=== PATIENT | male | born 1960 | race Caucasian/White ===

== ENCOUNTER 2024-07-10 08:30 | Day surgery (SDC) | payer OTHER ==
[2024-07-10 08:44] VITALS: RESP 18
[2024-07-10] MEDS ORDERED: DIPRIVAN 200 MG/20 ML IV ONE ×2 (10:54→10:59)
--- NOTE | 2024-07-10 10:57 | HP ---
HISTORY OF PRESENT ILLNESS: The patient has a history of anemia. No prior endoscopy per patient. No bloody stools. No change in bowel habits. No new pain. Family history negative for colon cancer. PAST MEDICAL HISTORY: Hyperlipidemia. HOME MEDICATIONS: Vitamin D3, pravastatin, atorvastatin. ALLERGIES: No known drug allergies. PAST SURGICAL HISTORY: No prior surgeries. SOCIAL HISTORY: No smoking or alcohol abuse. FAMILY HISTORY: Diabetes, heart disease. Negative for colon cancer. REVIEW OF SYSTEMS: Twelve systems reviewed. No chest pain or palpitations. Other systems negative or noncontributory as above and per preadmission questionnaire. PHYSICAL EXAMINATION: GENERAL: Height 5 feet 8 inches. BMI 34.21. No acute distress. HEENT: Sclerae nonicteric. NECK: No JVD. CHEST: Equal excursion, nonlabored breathing. CARDIOVASCULAR: Regular rate and rhythm. ABDOMEN: Soft. SKIN: Dry. EXTREMITIES: No cyanosis or edema. NEUROLOGIC: Alert and oriented. Moving extremities symmetrically. PSYCHIATRIC: Appropriate mood and affect. RECTAL: Deferred until time of endoscopy exam. IMPRESSION: Anemia. Needs EGD and colonoscopy for evaluation. Risks explained in detail including bleeding, infection, risk of bowel injury or perforation possibly requiring open procedure, risk of misdiagnosis or incomplete exam possibility requiring barium enema or other studies or procedures, general risk of anesthesia or sedation, risk of bowel prep. Will proceed with outpatient EGD and colonoscopy under MAC anesthesia as an outpatient to evaluate cause of anemia. Otherwise, continued medication for hyperlipidemia.
[2024-07-10 12:10] VITALS: BP 150/77; PULSE 71; TEMP 98.7; O2SAT 92
--- NOTE | 2024-07-11 12:29 | OP ---
SURGERY DATE/TIME: 07/10/2024 [id number] PREOPERATIVE DIAGNOSIS: Anemia. POSTOPERATIVE DIAGNOSES: 1) Gastritis, short segment distal esophageal inflammation, biopsy pending. 2) Question submucosa lipoma transverse colon. 3) Diverticulosis. 4) Fair but limited prep. 5) Very tiny trace hiatal hernia. PROCEDURE: 1) Esophagogastroduodenoscopy; cold biopsy of antrum for H pylori; cold biopsy distal esophagus to evaluate for short segment distal esophagitis. 2) Colonoscopy of the cecum; hot biopsy of the normal-appearing mucosa; overlying question of submucosal lipoma. SURGEON: Kvng Gee MD. ANESTHESIA: MAC. ESTIMATED BLOOD LOSS: Minimal. INDICATIONS: As above. Consent obtained. DESCRIPTION OF PROCEDURE AND FINDINGS: The patient was taken to the endoscopy room. MAC anesthesia was induced after official time-out and no disagreement with planned procedure. Bite block positioned. Videogastroscope easily passed down the esophagus through the patent pylorus to the junction of the third and fourth portions of the duodenum. The duodenum was grossly unremarkable. No signs of any obvious large polyps, mass or obstructing lesions in ileocecal valve and appendiceal orifice. The scope was then passed through the junction of the third and fourth portions of the duodenum. On withdrawal of the scope, no signs of any ulcers. There was a little bit of gastritis in the stomach. Cold biopsy taken to evaluate for H pylori. There were no signs of any ulcers. Good hemostasis noted. On retroflex, there is maybe a very tiny hiatal weakness. No signs of any large hiatal hernia. Scope was straightened. Short segment. A little bit of inflammation distal esophagus. No signs of Freeman's. No signs of any obvious masses or ulcers. Good hemostasis was noted. GE junction was about 36 cm. Scope was withdrawn. The patient's ASA class was 2. Prep overall was fair, and on the limited side. A little bit of liquidy semi-solid stool throughout the colon, this did limit the exam for small lesions. There were no signs of any large polyps, masses, or obstructing lesions. The patient did have some diverticulosis mostly in the small diverticula in the left colon. There was small 0.5 cm submucosal smooth density, question lipoma. The mucosa overlying was normal-appearing. Cold biopsies taken of this. Otherwise, scope pulled back and cold biopsy was taken. Good hemostasis was noted. Otherwise, scope was carefully pulled back. No signs of any large polyps, masses, or obstructing lesions. He did have some diverticulosis in the left colon and had some minimal internal hemorrhoids. The scope was withdrawn. The patient tolerated the procedure well. The withdrawal time on the colon was about 10 minutes. Went to look for family after the procedure.
== END 2024-07-10 12:15 | disposition home or self-care (01) ==
LOC: SDC 08:30 → EDSEX 08:30 → SDC 12:15
PROVIDERS: ATTEND Surgery
DX: K29.70 Gastritis, unspecified, without bleeding (principal); D64.9 Anemia, unspecified; K63.5 Polyp of colon; K57.30 Diverticulosis of large intestine without perforation or abscess without bleeding; K44.9 Diaphragmatic hernia without obstruction or gangrene
CPT/HCPCS: J2704

== ENCOUNTER 2025-06-15 10:02 | Emergency (ER) | payer OTHER ==
--- NOTE | 2025-06-15 10:12 | ERPHSYRPT ---
- History of Present Illness Time Seen by Provider: 06/15/25 10:12 Historian: patient, family, old records Exam Limitations: no limitations Physician History: This is a morbidly obese 65-year-old white male patient who arrives to the emergency department by private vehicle accompanied by his spouse with the complaint of bilateral lower quadrant abdominal pain/pressure that began 2 days ago. Patient has had associated small passages of liquid stool. Patient had a colonoscopy within the last year. Patient underwent an appendectomy at this hospital in January 2025 and I reviewed that admission summary. At that time he was also found to have evidence of sigmoid colitis. Patient has a history of hyperlipidemia, anemia, hypothyroidism. Patient denies chest pain and he denies shortness of breath. Patient states his last oral intake was coffee at 9 AM Timing/Duration: day(s) (2) Activities at Onset: none Quality: pressure Abdominal Pain Onset Location: RLQ, LLQ Pain Radiation: no radiation Severity of Pain-Max: moderate Associated Symptoms: diarrhea Previous symptoms: same symptoms as today, no recent treatment Allergies/Adverse Reactions: No Known Drug Allergies Allergy (Verified 06/15/25 10:16) Home Medications: Atorvastatin Calcium 20 mg PO UD 06/28/24 [History] Pravastatin Sodium 20 mg PO UD 06/28/24 [History] Cholecalciferol (Vitamin D3) [Vitamin D] 2,000 unit PO DAILY 06/15/25 [History] Levothyroxine Sodium [Synthroid] 1 ea DAILY 06/15/25 [History] Hx Tetanus, Diphtheria Vaccination/Date Given: No Hx Influenza Vaccination/Date Given: No Hx Pneumococcal Vaccination/Date Given: No Travel Risk - International Travel Have you traveled outside of the country in past 3 weeks: No - Emerging Infectious Disease Are you exhibiting symptoms associated with any current EIDs: Yes Symptoms: Abdominal Pain - Review of Systems Constitutional: No Symptoms Eyes: No Symptoms Ears, Nose, & Throat: No Symptoms Respiratory: No Symptoms Cardiac: No Symptoms Abdominal/Gastrointestinal: Abdominal Pain, Diarrhea Genitourinary Symptoms: No Symptoms Musculoskeletal: No Symptoms Skin: No Symptoms Neurological: No Symptoms Psychological: No Symptoms Endocrine: No Symptoms Hematologic/Lymphatic: No Symptoms Immunological/Allergic: No Symptoms All Other Systems: Reviewed and Negative - Past Medical History Pertinent Past Medical History: No Neurological History: No Pertinent History ENT History: No Pertinent History Cardiac History: High Cholesterol Respiratory History: No Pertinent History Endocrine Medical History: No Pertinent History Musculoskeletal History: No Pertinent History GI Medical History: No Pertinent History History: No Pertinent History Psycho-Social History: No Pertinent History Other Medical History: anemia - Past Surgical History Past Surgical History: No Neuro Surgical History: No Pertinent History Cardiac: No Pertinent History Respiratory: No Pertinent History Gastrointestinal: No Pertinent History Genitourinary: No Pertinent History Musculoskeletal: No Pertinent History Male Surgical History: No Pertinent History Significant Family History: no pertinent family hx (No family history pertaining to this admission reported) - Social History Smoking Status: Former smoker Exposure to second hand smoke: No Drug Use: none - Social Determinants of Health Will the patient participate in the screening: Yes Do you worry about a steady place to live?: No In the past 12 months,have you had to go without utilities?: No Transportation Issues: No Has anyone in your support network made you feel unsafe?: No Have you or anyone in your house had to go w/o enough food: No - Nursing Vital Signs Nursing Vital Signs: Initial Vital Signs Temperature 99.6 F 06/15/25 10:02 Pulse Rate 93 H 06/15/25 10:02 Respiratory Rate 18 06/15/25 10:02 Blood Pressure 154/92 06/15/25 10:02 O2 Sat by Pulse Oximetry 97 06/15/25 10:02 Pain Scale Pain Intensity 10 - Physical Exam General Appearance: no apparent distress, alert, anxiety, obese Eye Exam: PERRL/EOMI, eyes nml inspection Ears, Nose, Throat Exam: normal ENT inspection, moist mucous membranes Neck Exam: normal inspection, non-tender, supple, carotid bruit Respiratory Exam: normal breath sounds, lungs clear, airway intact, No chest tenderness, No respiratory distress Cardiovascular Exam: regular rate/rhythm, normal heart sounds, normal peripheral pulses Gastrointestinal/Abdomen Exam: soft, normal bowel sounds, tenderness (Bilateral lower quadrants to palpation), guarding (Bilateral lower quadrant to palpation), No rebound Rectal Exam: not done Back Exam: normal inspection, normal range of motion, No CVA tenderness, No vertebral tenderness Extremity Exam: normal inspection, normal range of motion, pelvis stable Neurologic Exam: alert, oriented x 3, cooperative, hydraulic engineer II-XII nml as tested, nml cerebellar function, nml station & gait, sensation nml Skin Exam: normal color, warm, dry Lymphatic Exam: No adenopathy SpO2 Interpretation: normal O2 Delivery: Room Air Ordered Tests: Active Orders 24 hr Category Date Time Status IV Insertion STAT Care 06/15/25 10:34 Active ABDOMEN AND PELVIS W/0 CONTRAS [CT] Stat Exams 06/15/25 10:35 Completed AMYLASE Stat Lab 06/15/25 10:30 Completed CBC W DIFF Stat Lab 06/15/25 10:40 Completed CMP Stat Lab 06/15/25 10:30 Completed CULTURE,URINE Stat Lab 06/15/25 10:37 Received LIPASE Stat Lab 06/15/25 10:30 Completed Lactic Acid Stat Lab 06/15/25 10:34 Completed UA W/RFX UR CULTURE Stat Lab 06/15/25 10:37 Completed Medication Summary Discontinued Medications Generic Name Dose Route Start Last Admin Trade Name Freq PRN Reason Stop Dose Admin Hydromorphone HCl 1 mg 06/15/25 10:34 06/15/25 10:42 Hydromorphone 1 Mg/1ml Inj IV 06/15/25 10:35 1 mg STAT ONE Administration Hydromorphone HCl Confirm 06/15/25 10:40 Hydromorphone 1 Mg/1ml Inj Administered 06/15/25 10:41 Dose 1 mg .ROUTE .STK-MED ONE Sodium Chloride 1,000 mls @ 999 mls/hr 06/15/25 10:34 06/15/25 10:42 Sodium Chloride 0.9% 1000 Ml IV 06/15/25 11:34 999 mls/hr .Q1H1M STA Administration Sodium Chloride Confirm 06/15/25 10:40 Sodium Chloride 0.9% 1000 Ml Administered 06/15/25 10:41 Dose 1,000 mls @ ud .ROUTE .STK-MED ONE Ondansetron HCl 4 mg 06/15/25 10:34 06/15/25 10:43 Ondansetron Hcl 4 Mg/2 Ml Vial IV 06/15/25 10:35 4 mg STAT ONE Administration Ondansetron HCl Confirm 06/15/25 10:39 Ondansetron Hcl 4 Mg/2 Ml Vial Administered 06/15/25 10:40 Dose 4 mg .ROUTE .STK-MED ONE Lab/Rad Data: Laboratory Result Diagrams 06/15/25 10:40 10/31/25 10:30 Laboratory Results 06/15/25 06/15/25 06/15/25 Range/Units 10:40 10:37 10:34 WBC 18.0 H (4.23-9.07) x10^3/uL RBC 3.43 L (4.63-6.08) x10^6/uL Hgb 12.1 L (13.7-17.5) g/dL Hct 35.3 L (40.1-51.0) % MCV 102.9 H (79.0-92.2) fL MCH 35.3 H (25.7-32.2) pg MCHC 34.3 (32.3-36.5) g/dL RDW 15.6 H (11.6-14.4) % Plt Count 286 (163-337) x10^3/uL MPV 9.7 (9.4-12.4) fL Gran % 83.2 H (34.0-67.9) % Immature Gran % (Auto) 0.5 H (0.001-0.429) % Nucleat RBC Rel Count 0.0 (0.00-0.2) % Eos # (Auto) 0.01 L (0.04-0.54) x10^3/uL Immature Gran # (Auto) 0.09 H (0.001-0.031) x10^3u/L Absolute Lymphs (auto) 1.85 (1.32-3.57) x10^3/uL Absolute Monos (auto) 1.03 H (0.30-0.82) x10^3/uL Absolute Nucleated RBC 0.00 (0.00-0.012) x10^3u/L Lymphocytes % 10.3 L (21.8-53.1) % Monocytes % 5.7 (5.3-12.2) % Eosinophils % 0.1 L (0.8-7.0) % Basophils % 0.2 (0.2-1.2) % Absolute Granulocytes 14.94 H (1.78-5.38) x10^3/uL Basophils # 0.04 (0.01-0.08) x10^3/uL Sodium (135-145) mmol/L Potassium (3.5-5.1) mmol/L Chloride (98-107) mmol/L Carbon Dioxide (22-30) mmol/L Anion Gap (5-15) MEQ/L BUN (9-20) mg/dL Creatinine (0.66-1.25) mg/dL Estimated GFR ML/MIN Glucose (74-106) mg/dL Lactic Acid 1.5 (0.4-2.0) Calcium (8.4-10.2) mg/dL Total Bilirubin (0.2-1.3) mg/dL AST (17-59) U/L ALT (0-50) U/L Alkaline Phosphatase (38-126) U/L Serum Total Protein (6.3-8.2) g/dL Albumin (3.5-5.0) g/dL Amylase (30-110) U/L Lipase (23-300) U/L Urine Color Dark Yellow (Yellow) Urine Appearance Clear (Clear) Urine pH 5.5 (4.6-8.0) Ur Specific [place] 1.025 (1.005-1.030) Urine Protein 30 (Negative) Urine Glucose (UA) Negative (Negative) mg/dL Urine Ketones 15 A (Negative) Urine Blood Large A (Negative) Urine Nitrite Negative (Negative) Urine Bilirubin Negative (Negative) Urine Urobilinogen 1.0 A (0.2) mg/dL Ur Leukocyte Esterase Negative (Negative) U Hyaline Cast (Auto) NONE SEEN (0-2) /LPF Urine Microscopic RBC 21-50 A (0-5) /HPF Urine Microscopic WBC 0-2 (0-5) /HPF Ur Epithelial Cells None Seen (None Seen) /HPF Urine Bacteria None Seen (None Seen) /HPF Urine Culture Reflexed YES (NO) 06/15/25 Range/Units 10:30 WBC (4.23-9.07) x10^3/uL RBC (4.63-6.08) x10^6/uL Hgb (13.7-17.5) g/dL Hct (40.1-51.0) % MCV (79.0-92.2) fL MCH (25.7-32.2) pg MCHC (32.3-36.5) g/dL RDW (11.6-14.4) % Plt Count (163-337) x10^3/uL MPV (9.4-12.4) fL Gran % (34.0-67.9) % Immature Gran % (Auto) (0.001-0.429) % Nucleat RBC Rel Count (0.00-0.2) % Eos # (Auto) (0.04-0.54) x10^3/uL Immature Gran # (Auto) (0.001-0.031) x10^3u/L Absolute Lymphs (auto) (1.32-3.57) x10^3/uL Absolute Monos (auto) (0.30-0.82) x10^3/uL Absolute Nucleated RBC (0.00-0.012) x10^3u/L Lymphocytes % (21.8-53.1) % Monocytes % (5.3-12.2) % Eosinophils % (0.8-7.0) % Basophils % (0.2-1.2) % Absolute Granulocytes (1.78-5.38) x10^3/uL Basophils # (0.01-0.08) x10^3/uL Sodium 136 (135-145) mmol/L Potassium 3.9 (3.5-5.1) mmol/L Chloride 105 (98-107) mmol/L Carbon Dioxide 21 L (22-30) mmol/L Anion Gap 13.4 (5-15) MEQ/L BUN 14 (9-20) mg/dL Creatinine 1.20 (0.66-1.25) mg/dL Estimated GFR 66.7 ML/MIN Glucose 134 H (74-106) mg/dL Lactic Acid (0.4-2.0) Calcium 8.7 (8.4-10.2) mg/dL Total Bilirubin 1.30 (0.2-1.3) mg/dL AST 21 (17-59) U/L ALT 23 (0-50) U/L Alkaline Phosphatase 64 (38-126) U/L Serum Total Protein 7.7 (6.3-8.2) g/dL Albumin 4.5 (3.5-5.0) g/dL Amylase 73 (30-110) U/L Lipase 57 (23-300) U/L Urine Color (Yellow) Urine Appearance (Clear) Urine pH (4.6-8.0) Ur Specific Crouse (1.005-1.030) Urine Protein (Negative) Urine Glucose (UA) (Negative) mg/dL Urine Ketones (Negative) Urine Blood (Negative) Urine Nitrite (Negative) Urine Bilirubin (Negative) Urine Urobilinogen (0.2) mg/dL Ur Leukocyte Esterase (Negative) U Hyaline Cast (Auto) (0-2) /LPF Urine Microscopic RBC (0-5) /HPF Urine Microscopic WBC (0-5) /HPF Ur Epithelial Cells (None Seen) /HPF Urine Bacteria (None Seen) /HPF Urine Culture Reflexed (NO) - Progress Progress: improved, re-examined Progress Note: 06/15/25 10:45 My medical decision making and the assignment of moderate to high complexity of this patient's medical issue is based on review of the patient's past medical history, review of patient last admission note in January 2025, review of the patient's medication list, reviewed patient drug allergy list, history of present illness and physical findings on examination. The workup in this patient includes placement of a intravenous line infusion of normal saline solution, infusion of Zofran, infusion of Dilaudid, CBC, CMP, amylase, lipase, urinalysis, CT scan of the abdomen pelvis without contrast Differential diagnosis includes but is not limited to colitis, diverticulitis, bowel obstruction, pancreatitis, urinary tract infection 06/15/25 12:01 I interpreted the patient's laboratory data results. Based on the laboratory data results, there is evidence of leukocytosis and dehydration. White count is 18,000. Lactic acid is normal. CO2 level is 21. Anion gap is normal. Urinalysis is consistent with mild dehydration with the presence of ketonuria. CT scan of the abdomen pelvis without contrast was interpreted by the radiologist and I reviewed the impression. The impression states sigmoid diverticulitis/colitis with mesenteric stranding. Colonic mass is not completely excluded. There is no evidence of free air or free fluid. Note: Patient had a nonacute colonoscopy 10 months ago per patient. Counseled pt/family regarding: lab results, diagnosis, need for follow-up, rad results Medical Desision Making - Independent Historian Additional History obtained from: Spouse - Diagnostic Testing Diagnostic test were ordered, analyzed, and reviewed by me: Yes Radiological Interpretation: Reviewed by me, Teleradiologist Report - Risk of complications Low Risk: Low risk of morbidity from additional dx testing or treatment The pt has a mod risk of morbidity or mortality based on: Need for prescription drug management - Departure Departure Disposition: Home Clinical Impression: Sigmoid diverticulitis, Leukocytosis, Dehydration Condition: Stable Critical Care Time: No Referrals: HOSPITAL,'[facility] [Primary Care Provider, UNKNOWN] - Follow up/PCP as directed Additional Instructions: Drink plenty of clear liquids. Do not advance your diet until you have no abdominal pain. Take your antibiotics and pain medicine as prescribed. Return to the emergency department if symptoms worsen. Call your primary care provider today, 06/15/2025, to make arrangements for follow-up appointment to be seen in the next 3 to 5 days. Prescriptions: Hydrocodone/APAP 5/325 [[place] 5/325 mg] 1 each PO Q12H PRN PRN #6 tablet MDD 2 PRN Reason: Pain Ciprofloxacin [Cipro 500 MG] 500 mg PO BID #14 tablet Metronidazole 500 mg [Flagyl 500 MG] 500 mg PO TID #21 tablet
[2025-06-15 10:32] VITALS: RESP 18
[2025-06-15 10:35] VITALS: PULSE 94
[2025-06-15] MEDS ORDERED: Zofran 4 MG/2 ML VIAL ONE (10:39)
[2025-06-15] MEDS ORDERED: Hydromorphone 1 mg/ml Injection ONE (10:40)
[2025-06-15] MEDS: Hydromorphone 1 mg/ml Injection IV ONE ×2 (10:42→13:49)
[2025-06-15] MEDS: Zofran 4 MG/2 ML VIAL IV ONE (10:43)
[2025-06-15 10:49] LABS: BASOPHIL % 0.2 % (0.2-1.2); Basophil (Absolute #) 0.04 x10^3/uL (0.01-0.08); Eosinophil (Absolute #) 0.01 x10^3/uL (0.04-0.54); Hematocrit 35.3 % (40.1-51.0); Hemoglobin 12.1 g/dL (13.7-17.5); IMMATURE GRAN # 0.09 x10^3u/L (0.001-0.031); IMMATURE GRAN % 0.5 % (0.001-0.429); Lymphocyte (Absolute #) 1.85 x10^3/uL (1.32-3.57); Mean Corpuscular Hemoglobin 35.3 pg (25.7-32.2); Mean Corpuscular Hgb Concent. 34.3 g/dL (32.3-36.5); Monocyte (Absolute #) 1.03 x10^3/uL (0.30-0.82); NUCLEATED RBC # 0.00 x10^3u/L (0.00-0.012); NUCLEATED RBC % 0.0 % (0.00-0.2); Platelet Count 286 x10^3/uL (163-337); Red Blood Count 3.43 x10^6/uL (4.63-6.08); White Blood Count 18.0 x10^3/uL (4.23-9.07)
[2025-06-15 10:54] LABS: Glucose, Urine Negative (Negative); Protein,Urine Dip 30 (Negative); RBC 21-50 /HPF (0-5); WBC 0-2 /HPF (0-5)
[2025-06-15 11:12] LABS: Calcium 8.7 mg/dL (8.4-10.2); Carbon Dioxide 21.0 mmol/L (22-30); Creatinine 1 1.2 mg/dL (0.66-1.25); EST GLOMERULAR FILTRATION RATE 66.7 ML/MIN; Glucose 134.0 mg/dL (74-106); Potassium 3.9 mmol/L (3.5-5.1); SGOT/AST 21.0 U/L (17-59); SGPT/ALT 23.0 U/L (0-50); Total Protein 7.7 g/dL (6.3-8.2)
--- NOTE | 2025-06-15 11:51 | XRAY ---
Indication: Bilateral lower quadrant abdominal pain. Diarrhea. Multiple contiguous axial images obtained through the abdomen and pelvis without contrast. Comparison: March 16, 2025 Lung bases again demonstrates minimal dependent atelectasis and tiny right base calcified granuloma. No infiltrate or effusion. Heart not enlarged. Stable small hiatal hernia. Noncontrasted stomach and bowel loops nonobstructed. Again mild scattered colonic diverticulosis. Sigmoid again demonstrates segment of abnormal circumferential wall thickening with mesenteric stranding, more than before. This is at least 10 cm in length. Findings may represent diverticulitis/colitis. Underlying colonic mass not completely excluded on this noncontrast exam. Again appendectomy. No free fluid/air. Stable 3.3 cm left renal exophytic cyst. Remaining liver, gallbladder, pancreas, spleen, adrenal glands, kidneys, ureters, and bladder are unremarkable for noncontrast exam. There remains mild scattered aortoiliac calcifications. Osseous structures intact again with osteopenia and minimal degenerative changes throughout spine. Impression: 1. Worsening sigmoid bowel wall thickening and mesenteric stranding, possibly diverticulitis/colitis as previously reported. Colonic mass not completely excluded. 2. Again chronic findings including hiatal hernia, colonic diverticulosis, left renal cyst, arteriosclerotic disease, chronic bony findings, and old granulomatous disease.
[2025-06-15] MEDS ORDERED: Flagyl 500 MG ONE (12:11)
[2025-06-15] MEDS ORDERED: PIPERACILLIN/TAZOBACTAM IV ONE (12:11)
[2025-06-15] MEDS: Flagyl 500 MG PO ONE (12:15)
[2025-06-15 13:29] VITALS: BP 129/71; O2SAT 96
[2025-06-15 13:33] VITALS: TEMP 98.6
== END 2025-06-15 14:01 | disposition home or self-care (01) ==
LOC: ED 10:02
DX: K57.32 Diverticulitis of large intestine without perforation or abscess without bleeding (principal); D72.829 Elevated white blood cell count, unspecified; E86.0 Dehydration; R10.31 Right lower quadrant pain; R10.32 Left lower quadrant pain; Z79.891 Long term (current) use of opiate analgesic; Z79.899 Other long term (current) drug therapy

== ENCOUNTER 2025-06-17 06:22 | Emergency (ER) | payer OTHER ==
--- NOTE | 2025-06-17 06:41 | ERPHSYRPT ---
- History of Present Illness Time Seen by Provider: 06/17/25 06:35 Historian: patient, family Exam Limitations: no limitations Patient Subjective Stated Complaint: pt states that he was diagnosed with diverticulitis on wednesday. pt states that the pain began this morning. pt states that he was fine before bed. Triage Nursing Assessment: pt came into the er via wheelchair; pt transfer to cot per self; pt is restless and agitated; c/o abd pain; pt states 10/10 pain to lower abd; abd round, large, distended, tender; hypoactive bowel sounds in all quads; last BM was small this morning; pt denies N/V; skin pale, diaphoretic, warm; no respiratory distress present; hypertensive Physician History: This is a 65-year-old white male patient who presents to the emergency department by private vehicle accompanied by his spouse and is a patient of the [facility] system with severe lower pain. Patient was diagnosed with sigmoid diverticulitis on 06/15/2025. He was diagnosed based on CT scan which showed sigmoid diverticulitis/colitis with mesenteric stranding. He did have a white count of 18,000 on that visit with normal lactic acid level and normal anion gap. Colonic mass could not be entirely excluded. There is no evidence of abscess. There is no evidence of free air or free fluid. Of note: Patient had an nonacute/normal colonoscopy 10 months ago per his report. Patient was sent home with prescription for Cipro, Flagyl and [place]. He was feeling much improved. He felt good going to bed last evening. However this morning he woke up with sudden onset of the pain description as above. Patient denies chest pain and he denies shortness of breath. Patient has a history of hyperlipidemia and hypothyroid. Patient's vital signs are stable at this time and is afebrile. Timing/Duration: today, worse Quality: sharpness, stabbing Abdominal Pain Onset Location: RLQ, LLQ Pain Radiation: groin Severity of Pain-Max: moderate Severity of Pain-Current: moderate Modifying Factors: Improves With: nothing Associated Symptoms: loss of appetite, nausea, No chest pain, No shortness of breath, No vomiting Previous symptoms: same symptoms as today, recently seen, recently treated Allergies/Adverse Reactions: No Known Drug Allergies Allergy (Verified 06/17/25 06:29) Home Medications: Atorvastatin Calcium 20 mg PO UD 06/28/24 [History] Pravastatin Sodium 20 mg PO UD 06/28/24 [History] Cholecalciferol (Vitamin D3) [Vitamin D] 2,000 unit PO DAILY 06/15/25 [History] Levothyroxine Sodium [Synthroid] 1 ea DAILY 06/15/25 [History] Hx Tetanus, Diphtheria Vaccination/Date Given: No (unknown) Hx Influenza Vaccination/Date Given: No Hx Pneumococcal Vaccination/Date Given: No Travel Risk - International Travel Have you traveled outside of the country in past 3 weeks: No - Emerging Infectious Disease Are you exhibiting symptoms associated with any current EIDs: Yes Symptoms: Abdominal Pain - Review of Systems Constitutional: No Symptoms Eyes: No Symptoms Ears, Nose, & Throat: No Symptoms Respiratory: No Symptoms Cardiac: No Symptoms Abdominal/Gastrointestinal: Abdominal Pain (Bilateral lower quadrant abdominal pain) Genitourinary Symptoms: No Symptoms Musculoskeletal: No Symptoms Skin: No Symptoms Neurological: No Symptoms Psychological: No Symptoms Endocrine: No Symptoms Hematologic/Lymphatic: No Symptoms Immunological/Allergic: No Symptoms All Other Systems: Reviewed and Negative - Past Medical History Pertinent Past Medical History: No Neurological History: No Pertinent History ENT History: No Pertinent History Cardiac History: High Cholesterol Respiratory History: No Pertinent History Endocrine Medical History: No Pertinent History Musculoskeletal History: No Pertinent History GI Medical History: No Pertinent History History: No Pertinent History Psycho-Social History: No Pertinent History Other Medical History: anemia - Past Surgical History Past Surgical History: No Neuro Surgical History: No Pertinent History Cardiac: No Pertinent History Respiratory: No Pertinent History Gastrointestinal: No Pertinent History Genitourinary: No Pertinent History Musculoskeletal: No Pertinent History Male Surgical History: No Pertinent History Significant Family History: no pertinent family hx (No family history pertaining to this admission reported) - Social History Smoking Status: Former smoker Exposure to second hand smoke: No Drug Use: none - Social Determinants of Health Will the patient participate in the screening: Yes Do you worry about a steady place to live?: No Do you have any problems with any of the following?: No known problems In the past 12 months,have you had to go without utilities?: No Transportation Issues: No Has anyone in your support network made you feel unsafe?: No Have you or anyone in your house had to go w/o enough food: No - Nursing Vital Signs Nursing Vital Signs: Initial Vital Signs Temperature 96.6 F 11/02/25 06:29 Pulse Rate 83 06/17/25 06:29 Respiratory Rate 22 06/17/25 06:29 Blood Pressure 167/79 06/17/25 06:29 O2 Sat by Pulse Oximetry 97 06/17/25 06:29 Pain Scale Pain Intensity 4 - Physical Exam General Appearance: mild distress, alert, anxiety, obese Eye Exam: PERRL/EOMI, eyes nml inspection Ears, Nose, Throat Exam: normal ENT inspection, moist mucous membranes Neck Exam: normal inspection, non-tender, supple, full range of motion Respiratory Exam: normal breath sounds, lungs clear, airway intact, No chest tenderness, No respiratory distress Cardiovascular Exam: regular rate/rhythm, normal heart sounds, normal peripheral pulses Gastrointestinal/Abdomen Exam: soft, normal bowel sounds, tenderness (Bilateral lower quadrants to palpation), guarding (Bilateral), rebound ( lower quadrant to palpation bilateral lower quadrants to palpation) Male Genitalia Exam: normal genitalia Rectal Exam: not done Back Exam: normal inspection, normal range of motion, No CVA tenderness, No vertebral tenderness Extremity Exam: normal inspection, normal range of motion, pelvis stable Neurologic Exam: alert, oriented x 3, cooperative, material handler II-XII nml as tested, nml cerebellar function, nml station & gait, sensation nml Skin Exam: normal color, warm, dry Lymphatic Exam: No adenopathy SpO2 Interpretation: normal SpO2: 97 O2 Delivery: Room Air - Course Nursing assessment & vital signs reviewed: Yes Ordered Tests: Active Orders 24 hr Category Date Time Status IV Insertion STAT Care 06/17/25 06:43 Completed ABDOMEN AND PELVIS W/0 CONTRAS [CT] Stat Exams 06/17/25 06:44 Completed AMYLASE Stat Lab 06/17/25 06:45 Completed BLOOD CULTURE Stat Lab 06/17/25 08:19 Received CBC W DIFF Stat Lab 06/17/25 06:45 Completed CMP Stat Lab 06/17/25 06:45 Completed CULTURE,URINE Stat Lab 06/17/25 06:43 Received LIPASE Stat Lab 06/17/25 06:45 Completed Lactic Acid Stat Lab 06/17/25 06:43 Completed Lactic Acid Stat Lab 06/17/25 09:28 Completed UA W/RFX UR CULTURE Stat Lab 06/17/25 06:43 Completed Medication Summary Discontinued Medications Generic Name Dose Route Start Last Admin Trade Name Freq PRN Reason Stop Dose Admin Hydromorphone HCl 1 mg 06/17/25 06:43 06/17/25 06:50 Hydromorphone 1 Mg/1ml Inj IV 06/17/25 06:44 1 mg STAT ONE Administration Hydromorphone HCl Confirm 06/17/25 06:46 Hydromorphone 1 Mg/1ml Inj Administered 06/17/25 06:47 Dose 1 mg .ROUTE .STK-MED ONE Hydromorphone HCl 0.5 mg 06/17/25 07:25 06/17/25 07:29 Hydromorphone 1 Mg/1ml Inj IV 06/17/25 07:26 0.5 mg STAT ONE Administration Hydromorphone HCl Confirm 06/17/25 07:27 Hydromorphone 1 Mg/1ml Inj Administered 06/17/25 07:28 Dose 1 mg .ROUTE .STK-MED ONE Hydromorphone HCl 0.5 mg 06/17/25 12:32 06/17/25 12:39 Hydromorphone 1 Mg/1ml Inj IV 06/17/25 12:33 0.5 mg STAT ONE Administration Hydromorphone HCl Confirm 06/17/25 12:37 Hydromorphone 1 Mg/1ml Inj Administered 06/17/25 12:38 Dose 1 mg .ROUTE .STK-MED ONE Hydromorphone HCl 0.5 mg 06/17/25 15:18 06/17/25 15:31 Hydromorphone 1 Mg/1ml Inj IV 06/17/25 15:19 0.5 mg STAT ONE Administration Hydromorphone HCl Confirm 06/17/25 15:30 Hydromorphone 1 Mg/1ml Inj Administered 06/17/25 15:31 Dose 1 mg .ROUTE .STK-MED ONE Sodium Chloride 1,000 mls @ 999 mls/hr 06/17/25 06:43 06/17/25 07:51 Sodium Chloride 0.9% 1000 Ml IV 06/17/25 07:43 Infused .Q1H1M STA Infusion Sodium Chloride Confirm 06/17/25 06:46 Sodium Chloride 0.9% 1000 Ml Administered 06/17/25 06:47 Dose 1,000 mls @ ud .ROUTE .STK-MED ONE Piperacillin Sod/Tazobactam 100 mls @ 200 mls/hr 06/17/25 08:46 06/17/25 09:27 Sod 4.5 gm/ Sodium Chloride IV 06/17/25 09:15 Infused STAT STA Infusion Sodium Chloride Confirm 06/17/25 08:55 Sodium Chloride 100ml Mini-Bag Plus Administered 06/17/25 08:56 Dose 100 mls @ ud IV .STK-MED ONE Ondansetron HCl 4 mg 06/17/25 06:43 06/17/25 06:50 Ondansetron Hcl 4 Mg/2 Ml Vial IV 06/17/25 06:44 4 mg STAT ONE Administration Ondansetron HCl Confirm 06/17/25 06:46 Ondansetron Hcl 4 Mg/2 Ml Vial Administered 06/17/25 06:47 Dose 4 mg .ROUTE .STK-MED ONE Piperacillin Sod/Tazobactam Sod Confirm 06/17/25 08:53 Piperacillin/Tazobactam Sodium 3.375 Gm Vial Administered 06/17/25 08:54 Dose 3.375 gm IV .STK-MED ONE Piperacillin Sod/Tazobactam Sod Confirm 06/17/25 08:57 Piperacillin/Tazobactam Sodium 4.5 Gm Vial Administered 06/17/25 08:58 Dose 4.5 gm IV .STK-MED ONE Lab/Rad Data: Laboratory Result Diagrams 06/17/25 06:45 06/17/25 06:45 Laboratory Results 06/17/25 06/17/25 06/17/25 Range/Units 09:28 06:45 06:45 WBC 18.0 H (4.23-9.07) x10^3/uL RBC 3.08 L (4.63-6.08) x10^6/uL Hgb 10.8 L (13.7-17.5) g/dL Hct 31.7 L (40.1-51.0) % MCV 102.9 H (79.0-92.2) fL MCH 35.1 H (25.7-32.2) pg MCHC 34.1 (32.3-36.5) g/dL RDW 15.6 H (11.6-14.4) % Plt Count 265 (163-337) x10^3/uL MPV 9.8 (9.4-12.4) fL Gran % 79.1 H (34.0-67.9) % Immature Gran % (Auto) 0.7 H (0.001-0.429) % Nucleat RBC Rel Count 0.2 (0.00-0.2) % Eos # (Auto) 0.22 (0.04-0.54) x10^3/uL Immature Gran # (Auto) 0.13 H (0.001-0.031) x10^3u/L Absolute Lymphs (auto) 2.57 (1.32-3.57) x10^3/uL Absolute Monos (auto) 0.81 (0.30-0.82) x10^3/uL Absolute Nucleated RBC 0.03 H (0.00-0.012) x10^3u/L Lymphocytes % 14.3 L (21.8-53.1) % Monocytes % 4.5 L (5.3-12.2) % Eosinophils % 1.2 (0.8-7.0) % Basophils % 0.2 (0.2-1.2) % Absolute Granulocytes 14.19 H (1.78-5.38) x10^3/uL Basophils # 0.03 (0.01-0.08) x10^3/uL Sodium 134 L (135-145) mmol/L Potassium 3.2 L (3.5-5.1) mmol/L Chloride 105 (98-107) mmol/L Carbon Dioxide 18 L (22-30) mmol/L Anion Gap 13.9 (5-15) MEQ/L BUN 12 (9-20) mg/dL Creatinine 1.09 (0.66-1.25) mg/dL Estimated GFR 74.9 ML/MIN Glucose 166 H (74-106) mg/dL Lactic Acid 0.8 (0.4-2.0) Calcium 8.7 (8.4-10.2) mg/dL Total Bilirubin 0.80 (0.2-1.3) mg/dL AST 28 (17-59) U/L ALT 26 (0-50) U/L Alkaline Phosphatase 64 (38-126) U/L Serum Total Protein 7.3 (6.3-8.2) g/dL Albumin 3.9 (3.5-5.0) g/dL Amylase 74 (30-110) U/L Lipase 84 (23-300) U/L Urine Color (Yellow) Urine Appearance (Clear) Urine pH (4.6-8.0) Ur Specific [place] (1.005-1.030) Urine Protein (Negative) Urine Glucose (UA) (Negative) mg/dL Urine Ketones (Negative) Urine Blood (Negative) Urine Nitrite (Negative) Urine Bilirubin (Negative) Urine Urobilinogen (0.2) mg/dL Ur Leukocyte Esterase (Negative) U Hyaline Cast (Auto) (0-2) /LPF Urine Microscopic RBC (0-5) /HPF Urine Microscopic WBC (0-5) /HPF Ur Epithelial Cells (None Seen) /HPF Urine Bacteria (None Seen) /HPF Urine Culture Reflexed (NO) 06/17/25 06/17/25 Range/Units 06:43 06:43 WBC (4.23-9.07) x10^3/uL RBC (4.63-6.08) x10^6/uL Hgb (13.7-17.5) g/dL Hct (40.1-51.0) % MCV (79.0-92.2) fL MCH (25.7-32.2) pg MCHC (32.3-36.5) g/dL RDW (11.6-14.4) % Plt Count (163-337) x10^3/uL MPV (9.4-12.4) fL Gran % (34.0-67.9) % Immature Gran % (Auto) (0.001-0.429) % Nucleat RBC Rel Count (0.00-0.2) % Eos # (Auto) (0.04-0.54) x10^3/uL Immature Gran # (Auto) (0.001-0.031) x10^3u/L Absolute Lymphs (auto) (1.32-3.57) x10^3/uL Absolute Monos (auto) (0.30-0.82) x10^3/uL Absolute Nucleated RBC (0.00-0.012) x10^3u/L Lymphocytes % (21.8-53.1) % Monocytes % (5.3-12.2) % Eosinophils % (0.8-7.0) % Basophils % (0.2-1.2) % Absolute Granulocytes (1.78-5.38) x10^3/uL Basophils # (0.01-0.08) x10^3/uL Sodium (135-145) mmol/L Potassium (3.5-5.1) mmol/L Chloride (98-107) mmol/L Carbon Dioxide (22-30) mmol/L Anion Gap (5-15) MEQ/L BUN (9-20) mg/dL Creatinine (0.66-1.25) mg/dL Estimated GFR ML/MIN Glucose (74-106) mg/dL Lactic Acid 2.9 H (0.4-2.0) Calcium (8.4-10.2) mg/dL Total Bilirubin (0.2-1.3) mg/dL AST (17-59) U/L ALT (0-50) U/L Alkaline Phosphatase (38-126) U/L Serum Total Protein (6.3-8.2) g/dL Albumin (3.5-5.0) g/dL Amylase (30-110) U/L Lipase (23-300) U/L Urine Color Dark Yellow (Yellow) Urine Appearance Cloudy A (Clear) Urine pH 5.5 (4.6-8.0) Ur Specific [place] >=1.030 A (1.005-1.030) Urine Protein 100 A (Negative) Urine Glucose (UA) Negative (Negative) mg/dL Urine Ketones 15 A (Negative) Urine Blood Moderate A (Negative) Urine Nitrite Negative (Negative) Urine Bilirubin Negative (Negative) Urine Urobilinogen 1.0 A (0.2) mg/dL Ur Leukocyte Esterase Small A (Negative) U Hyaline Cast (Auto) 3-5 A (0-2) /LPF Urine Microscopic RBC 11-20 A (0-5) /HPF Urine Microscopic WBC 0-2 (0-5) /HPF Ur Epithelial Cells Rare (None Seen) /HPF Urine Bacteria None Seen (None Seen) /HPF Urine Culture Reflexed YES (NO) - Progress Progress: unchanged Progress Note: 06/17/25 06:50 My medical decision making and the assignment of moderate to high complexity of this patient's medical issue today is based on review of the patient's past medical history, reviewed patient's medication list, reviewed patient drug allergy list, history present illness and physical findings on examination. The workup in this patient includes placement of an intravenous line, infusion of normal saline solution, infusion of Zofran, infusion of Dilaudid, CBC, CMP, amylase, lipase, blood culture, urinalysis, lactic acid level, CT scan of the abdomen pelvis without contrast. Differential diagnosis includes but is not limited to worsening sigmoid diverticulitis/colitis, colonic perforation, bowel obstruction, sigmoid diverticulitis/colitis abscess, pancreatitis, failed outpatient therapy I am transferring care of this patient to Dr. Jaimes at shift change. He will follow-up on pending studies and make final disposition. - Departure Departure Disposition: Transfer Clinical Impression: Diverticulitis of intestine with perforation Qualifiers: Diverticulitis site: large intestine Diverticulitis bleeding: without bleeding Qualified Code(s): K57.20 - Diverticulitis of large intestine with perforation and abscess without bleeding Condition: Stable Critical Care Time: Yes Critical Care Time(excluding separately billable procedures): Critical 30-74 mins (60) Referrals: HOSPITAL,'S [Primary Care Provider, UNKNOWN] - Follow up/PCP as directed
[2025-06-17] MEDS ORDERED: Zofran 4 MG/2 ML VIAL ONE (06:46)
[2025-06-17] MEDS ORDERED: Hydromorphone 1 mg/ml Injection ONE ×4 (06:46→15:30)
[2025-06-17] MEDS: Hydromorphone 1 mg/ml Injection IV ONE ×4 (06:50→15:31)
[2025-06-17] MEDS: Zofran 4 MG/2 ML VIAL IV ONE (06:50)
[2025-06-17 06:52] LABS: BASOPHIL % 0.2 % (0.2-1.2); Basophil (Absolute #) 0.03 x10^3/uL (0.01-0.08); Eosinophil (Absolute #) 0.22 x10^3/uL (0.04-0.54); Hematocrit 31.7 % (40.1-51.0); Hemoglobin 10.8 g/dL (13.7-17.5); IMMATURE GRAN # 0.13 x10^3u/L (0.001-0.031); IMMATURE GRAN % 0.7 % (0.001-0.429); Lymphocyte (Absolute #) 2.57 x10^3/uL (1.32-3.57); Mean Corpuscular Hemoglobin 35.1 pg (25.7-32.2); Mean Corpuscular Hgb Concent. 34.1 g/dL (32.3-36.5); Monocyte (Absolute #) 0.81 x10^3/uL (0.30-0.82); NUCLEATED RBC # 0.03 x10^3u/L (0.00-0.012); NUCLEATED RBC % 0.2 % (0.00-0.2); Platelet Count 265 x10^3/uL (163-337); Red Blood Count 3.08 x10^6/uL (4.63-6.08); White Blood Count 18.0 x10^3/uL (4.23-9.07)
[2025-06-17 07:06] LABS: Calcium 8.7 mg/dL (8.4-10.2); Carbon Dioxide 18.0 mmol/L (22-30); Creatinine 1 1.09 mg/dL (0.66-1.25); EST GLOMERULAR FILTRATION RATE 74.9 ML/MIN; Glucose 166.0 mg/dL (74-106); Potassium 3.2 mmol/L (3.5-5.1); SGOT/AST 28.0 U/L (17-59); SGPT/ALT 26.0 U/L (0-50); Total Protein 7.3 g/dL (6.3-8.2)
--- NOTE | 2025-06-17 08:43 | XRAY ---
CLINICAL HISTORY: Sigmoid diverticulitis COMPARISON: Comparison is made with the previous CT study dated 06/15/2025. TECHNIQUE: Non-contrast CT of the abdomen and pelvis was performed, with the following protocol: axial images and reconstructed coronal and sagittal images. One of the following dose reduction techniques was utilized for this exam: automated exposure control, adjustment of the mA and/or kV according to patient size, and use of iterative reconstruction. FINDINGS: Abdomen: A few tiny, scattered intra-abdominal air droplets are noted, mainly in the upper abdomen and left subphrenic regions. Liver: The liver is normal in size, shape, and density. No focal lesions, cysts, or masses are identified. The hepatic vasculature and biliary ducts are unremarkable. Gallbladder and Biliary System: The gallbladder is normal in size and shape. No wall thickening, pericholecystic fluid, or gallstones are identified. The common bile duct is normal in caliber, without dilation. Pancreas: The pancreatic head, body, and tail are visualized and appear normal in size and density. No pancreatic masses or calcifications are noted. The pancreatic duct is not dilated. Spleen: The spleen is normal in size, shape, and density. No splenic lesions or masses are identified. Appendix: The appendix is not visualized, with a surgical staple in the right iliac fossa (RIF) consistent with post-operative status. Kidneys and Adrenal Glands: A simple cyst is seen in the midpole of the left kidney, measuring 4 cm?Bosniak type 1. The remainder of both kidneys are normal in size, shape, and position. Cortical thickness is within normal limits. No renal calculi or hydronephrosis are present. The adrenal glands are unremarkable, with no evidence of masses or hyperplasia. Pelvis: Urinary Bladder: The urinary bladder is normal in contour and wall thickness. No intraluminal lesions are identified. Prostate: The prostate is enlarged with a smooth contour. Focal calcification is seen in the parenchyma on the left side. No focal lesions or masses are identified. Seminal Vesicles: The seminal vesicles are normal in size and appearance. No abnormalities are noted. Rectum and Sigmoid Colon: Multiple gas-filled outpouchings are seen in all colonic segments, mainly in the sigmoid colon. Diffuse wall thickening and diffuse stranding in the sigmoid mesocolon are present, with a few regional pericolic, ill-defined collections noted, mainly at the anterior aspect, showing air/fluid level inside, measuring about 3.3 x 3 cm in maximum axial diameter, and another smaller one in the posteromedial aspect measuring about 3.1 x 1.2 cm in maximum axial diameter. The rectum has normal wall thickness, and there is no evidence of mass. Peritoneal and Retroperitoneal Structures: No free fluid or abnormal fluid collections are identified within the abdomen or pelvis. No lymphadenopathy is noted. Bowel: A sliding type of hiatal hernia is seen without a fluid level. The remainder of the visualized bowel loops are normal in caliber and appearance. No evidence of bowel obstruction. Bones and Soft Tissues: Degenerative changes are seen in the spine. A defect measuring 10 x 10 mm is seen in the umbilical region of the anterior abdominal wall, with omental fat as herniating content, without strangulation. The pelvic bones and soft tissues are unremarkable. No fractures or abnormal masses are identified. Lower chest: A few calcified right hilar lymph nodes are seen, measuring < 1 cm in the short axis. The lung bases are clear. No pleural effusion. IMPRESSION: New findings of a few intra-abdominal scattered air droplets of pneumoperitoneum, highly suggestive of bowel perforation. Signs of complicated sigmoid diverticulitis with a few pericolic inflammatory collections showing air/fluid level (abscess formation), progressive course. Hinchey classification type 1b. Prostatomegaly, stable. Sliding type of hiatal hernia without a fluid level, stable. Umbilical hernia, stable. Electronically Signed by: Josesito Degroot MD. (06/17/2025 08:40:59 EST)
[2025-06-17] MEDS ORDERED: PIPERACILLIN/TAZOBACTAM IV ONE ×2 (08:53→08:57)
[2025-06-17] MEDS ORDERED: Sodium Chloride 100ML MINI-BAG PLUS 100 ML IV ONE (08:55)
[2025-06-17 09:19] VITALS: TEMP 98.2
--- NOTE | 2025-06-17 11:07 | ERPHSYRPT ---
- History of Present Illness Time Seen by Provider: 06/17/25 06:35 Patient Subjective Stated Complaint: pt states that he was diagnosed with diverticulitis on wednesday. pt states that the pain began this morning. pt states that he was fine before bed. Triage Nursing Assessment: pt came into the er via wheelchair; pt transfer to cot per self; pt is restless and agitated; c/o abd pain; pt states 10/10 pain to lower abd; abd round, large, distended, tender; hypoactive bowel sounds in all quads; last BM was small this morning; pt denies N/V; skin pale, diaphoretic, warm; no respiratory distress present; hypertensive Allergies/Adverse Reactions: No Known Drug Allergies Allergy (Verified 06/17/25 06:29) Home Medications: Atorvastatin Calcium 20 mg PO UD 06/28/24 [History] Pravastatin Sodium 20 mg PO UD 06/28/24 [History] Cholecalciferol (Vitamin D3) [Vitamin D] 2,000 unit PO DAILY 06/15/25 [History] Levothyroxine Sodium [Synthroid] 1 ea DAILY 06/15/25 [History] Hx Tetanus, Diphtheria Vaccination/Date Given: No (unknown) Hx Influenza Vaccination/Date Given: No Hx Pneumococcal Vaccination/Date Given: No Travel Risk - International Travel Have you traveled outside of the country in past 3 weeks: No - Emerging Infectious Disease Are you exhibiting symptoms associated with any current EIDs: Yes Symptoms: Abdominal Pain - Past Medical History Pertinent Past Medical History: No Neurological History: No Pertinent History ENT History: No Pertinent History Cardiac History: High Cholesterol Respiratory History: No Pertinent History Endocrine Medical History: No Pertinent History Musculoskeletal History: No Pertinent History GI Medical History: No Pertinent History History: No Pertinent History Psycho-Social History: No Pertinent History Other Medical History: anemia - Past Surgical History Past Surgical History: No Neuro Surgical History: No Pertinent History Cardiac: No Pertinent History Respiratory: No Pertinent History Gastrointestinal: No Pertinent History Genitourinary: No Pertinent History Musculoskeletal: No Pertinent History Male Surgical History: No Pertinent History Significant Family History: no pertinent family hx (No family history pertaining to this admission reported) - Social History Smoking Status: Former smoker Exposure to second hand smoke: No Drug Use: none - Social Determinants of Health Will the patient participate in the screening: Yes Do you worry about a steady place to live?: No Do you have any problems with any of the following?: No known problems In the past 12 months,have you had to go without utilities?: No Transportation Issues: No Has anyone in your support network made you feel unsafe?: No Have you or anyone in your house had to go w/o enough food: No - Nursing Vital Signs Nursing Vital Signs: Initial Vital Signs Temperature 96.6 F 06/17/25 06:29 Pulse Rate 83 06/17/25 06:29 Respiratory Rate 22 06/17/25 06:29 Blood Pressure 167/79 06/17/25 06:29 O2 Sat by Pulse Oximetry 97 06/17/25 06:29 Pain Scale Pain Intensity 3 - Physical Exam SpO2 Interpretation: normal SpO2: 95 Ordered Tests: Active Orders 24 hr Category Date Time Status IV Insertion STAT Care 06/17/25 06:43 Active ABDOMEN AND PELVIS W/0 CONTRAS [CT] Stat Exams 06/17/25 06:44 Completed AMYLASE Stat Lab 06/17/25 06:45 Completed BLOOD CULTURE Stat Lab 06/17/25 08:19 Received CBC W DIFF Stat Lab 06/17/25 06:45 Completed CMP Stat Lab 06/17/25 06:45 Completed LIPASE Stat Lab 06/17/25 06:45 Completed Lactic Acid Stat Lab 06/17/25 06:43 Completed Lactic Acid Stat Lab 06/17/25 09:28 Completed UA W/RFX UR CULTURE Stat Lab 06/17/25 06:43 Ordered Medication Summary Discontinued Medications Generic Name Dose Route Start Last Admin Trade Name Freq PRN Reason Stop Dose Admin Hydromorphone HCl 1 mg 06/17/25 06:43 06/17/25 06:50 Hydromorphone 1 Mg/1ml Inj IV 06/17/25 06:44 1 mg STAT ONE Administration Hydromorphone HCl Confirm 06/17/25 06:46 Hydromorphone 1 Mg/1ml Inj Administered 06/17/25 06:47 Dose 1 mg .ROUTE .STK-MED ONE Hydromorphone HCl 0.5 mg 06/17/25 07:25 06/17/25 07:29 Hydromorphone 1 Mg/1ml Inj IV 06/17/25 07:26 0.5 mg STAT ONE Administration Hydromorphone HCl Confirm 06/17/25 07:27 Hydromorphone 1 Mg/1ml Inj Administered 06/17/25 07:28 Dose 1 mg .ROUTE .STK-MED ONE Sodium Chloride 1,000 mls @ 999 mls/hr 06/17/25 06:43 06/17/25 07:51 Sodium Chloride 0.9% 1000 Ml IV 06/17/25 07:43 Infused .Q1H1M STA Infusion Sodium Chloride Confirm 06/17/25 06:46 Sodium Chloride 0.9% 1000 Ml Administered 06/17/25 06:47 Dose 1,000 mls @ ud .ROUTE .STK-MED ONE Piperacillin Sod/Tazobactam 100 mls @ 200 mls/hr 06/17/25 08:46 06/17/25 09:27 Sod 4.5 gm/ Sodium Chloride IV 06/17/25 09:15 Infused STAT STA Infusion Sodium Chloride Confirm 06/17/25 08:55 Sodium Chloride 100ml Mini-Bag Plus Administered 06/17/25 08:56 Dose 100 mls @ ud IV .STK-MED ONE Ondansetron HCl 4 mg 06/17/25 06:43 06/17/25 06:50 Ondansetron Hcl 4 Mg/2 Ml Vial IV 06/17/25 06:44 4 mg STAT ONE Administration Ondansetron HCl Confirm 06/17/25 06:46 Ondansetron Hcl 4 Mg/2 Ml Vial Administered 06/17/25 06:47 Dose 4 mg .ROUTE .STK-MED ONE Piperacillin Sod/Tazobactam Sod Confirm 06/17/25 08:53 Piperacillin/Tazobactam Sodium 3.375 Gm Vial Administered 06/17/25 08:54 Dose 3.375 gm IV .STK-MED ONE Piperacillin Sod/Tazobactam Sod Confirm 06/17/25 08:57 Piperacillin/Tazobactam Sodium 4.5 Gm Vial Administered 06/17/25 08:58 Dose 4.5 gm IV .STK-MED ONE Lab/Rad Data: Laboratory Result Diagrams 06/17/25 06:45 06/17/25 06:45 Laboratory Results 06/17/25 06/17/25 06/17/25 Range/Units 09:28 06:45 06:45 WBC 18.0 H (4.23-9.07) x10^3/uL RBC 3.08 L (4.63-6.08) x10^6/uL Hgb 10.8 L (13.7-17.5) g/dL Hct 31.7 L (40.1-51.0) % MCV 102.9 H (79.0-92.2) fL MCH 35.1 H (25.7-32.2) pg MCHC 34.1 (32.3-36.5) g/dL RDW 15.6 H (11.6-14.4) % Plt Count 265 (163-337) x10^3/uL MPV 9.8 (9.4-12.4) fL Gran % 79.1 H (34.0-67.9) % Immature Gran % (Auto) 0.7 H (0.001-0.429) % Nucleat RBC Rel Count 0.2 (0.00-0.2) % Eos # (Auto) 0.22 (0.04-0.54) x10^3/uL Immature Gran # (Auto) 0.13 H (0.001-0.031) x10^3u/L Absolute Lymphs (auto) 2.57 (1.32-3.57) x10^3/uL Absolute Monos (auto) 0.81 (0.30-0.82) x10^3/uL Absolute Nucleated RBC 0.03 H (0.00-0.012) x10^3u/L Lymphocytes % 14.3 L (21.8-53.1) % Monocytes % 4.5 L (5.3-12.2) % Eosinophils % 1.2 (0.8-7.0) % Basophils % 0.2 (0.2-1.2) % Absolute Granulocytes 14.19 H (1.78-5.38) x10^3/uL Basophils # 0.03 (0.01-0.08) x10^3/uL Sodium 134 L (135-145) mmol/L Potassium 3.2 L (3.5-5.1) mmol/L Chloride 105 (98-107) mmol/L Carbon Dioxide 18 L (22-30) mmol/L Anion Gap 13.9 (5-15) MEQ/L BUN 12 (9-20) mg/dL Creatinine 1.09 (0.66-1.25) mg/dL Estimated GFR 74.9 ML/MIN Glucose 166 H (74-106) mg/dL Lactic Acid 0.8 (0.4-2.0) Calcium 8.7 (8.4-10.2) mg/dL Total Bilirubin 0.80 (0.2-1.3) mg/dL AST 28 (17-59) U/L ALT 26 (0-50) U/L Alkaline Phosphatase 64 (38-126) U/L Serum Total Protein 7.3 (6.3-8.2) g/dL Albumin 3.9 (3.5-5.0) g/dL Amylase 74 (30-110) U/L Lipase 84 (23-300) U/L 06/17/25 Range/Units 06:43 WBC (4.23-9.07) x10^3/uL RBC (4.63-6.08) x10^6/uL Hgb (13.7-17.5) g/dL Hct (40.1-51.0) % MCV (79.0-92.2) fL MCH (25.7-32.2) pg MCHC (32.3-36.5) g/dL RDW (11.6-14.4) % Plt Count (163-337) x10^3/uL MPV (9.4-12.4) fL Gran % (34.0-67.9) % Immature Gran % (Auto) (0.001-0.429) % Nucleat RBC Rel Count (0.00-0.2) % Eos # (Auto) (0.04-0.54) x10^3/uL Immature Gran # (Auto) (0.001-0.031) x10^3u/L Absolute Lymphs (auto) (1.32-3.57) x10^3/uL Absolute Monos (auto) (0.30-0.82) x10^3/uL Absolute Nucleated RBC (0.00-0.012) x10^3u/L Lymphocytes % (21.8-53.1) % Monocytes % (5.3-12.2) % Eosinophils % (0.8-7.0) % Basophils % (0.2-1.2) % Absolute Granulocytes (1.78-5.38) x10^3/uL Basophils # (0.01-0.08) x10^3/uL Sodium (135-145) mmol/L Potassium (3.5-5.1) mmol/L Chloride (98-107) mmol/L Carbon Dioxide (22-30) mmol/L Anion Gap (5-15) MEQ/L BUN (9-20) mg/dL Creatinine (0.66-1.25) mg/dL Estimated GFR ML/MIN Glucose (74-106) mg/dL Lactic Acid 2.9 H (0.4-2.0) Calcium (8.4-10.2) mg/dL Total Bilirubin (0.2-1.3) mg/dL AST (17-59) U/L ALT (0-50) U/L Alkaline Phosphatase (38-126) U/L Serum Total Protein (6.3-8.2) g/dL Albumin (3.5-5.0) g/dL Amylase (30-110) U/L Lipase (23-300) U/L - Progress Progress Note: 06/17/25 11:01 Consult to general surgery, Discussed CT findings and labs, it was recommended that the patient be transferred to [facility] - Departure Departure Disposition: Transfer Clinical Impression: Diverticulitis of intestine with perforation Qualifiers: Diverticulitis site: large intestine Diverticulitis bleeding: without bleeding Qualified Code(s): K57.20 - Diverticulitis of large intestine with perforation and abscess without bleeding Condition: Stable Critical Care Time: No Referrals: [facility]OSPITAL[facility] [Primary Care Provider, UNKNOWN] - Follow up/PCP as directed
[2025-06-17 12:36] LABS: Glucose, Urine Negative (Negative); Protein,Urine Dip 100 (Negative); WBC 0-2 /HPF (0-5)
[2025-06-17 17:00] VITALS: BP 125/68; PULSE 92; RESP 18
[2025-06-18 06:14] VITALS: O2SAT 97
== END 2025-06-17 17:05 | disposition short-term general hospital (02) ==
LOC: ED 06:22
DX: K57.20 Diverticulitis of large intestine with perforation and abscess without bleeding (principal); R10.32 Left lower quadrant pain; R10.31 Right lower quadrant pain; Z79.899 Other long term (current) drug therapy